=== PATIENT | female | born 1985 ===

== ENCOUNTER 2020-12-13 11:25 | Emergency (ER) | payer BC ==
[~2020-12-13] VITALS: Ht 165.1 cm; Wt 81.6 kg
[2020-12-13 11:54] VITALS: BP 119/76
[2020-12-13] MEDS ORDERED: ACETAMINOPHEN/CODEINE#3 (300/30mg) TAB PO ONE (12:45)
[2020-12-13] MEDS ORDERED: ONDANSETRON ODT 4 MG TAB PO ONE (12:45)
== END 2020-12-13 12:57 | disposition home or self-care (01) ==
LOC: ER 11:25
DX: U07.1 COVID-19 (principal); J12.82 Pneumonia due to coronavirus disease 2019
CPT/HCPCS: 71045; 81025; 99283; Q0162